=== PATIENT | male | born 1985 | race African-American/Black ===

== ENCOUNTER 2016-09-22 02:55 | Emergency (ER) | payer SELFPAY ==
[2016-09-22] MEDS ORDERED: PENICILLIN V POTASSIUM 500 MG TABLET PO ONE (04:36)
[2016-09-22] MEDS ORDERED: HYDROCODONE/ACETAMINOPHEN 5-325 MG 6 TAB/DSPK PO PRN (04:36)
--- NOTE | 2016-09-22 04:37 | ER Document Report ---
ED Oral Problem - General Chief Complaint: Toothache Stated Complaint: TOOTHACHE Time seen by provider: 04:36 Mode of Arrival: Ambulatory Information source: Patient TRAVEL OUTSIDE OF THE [place] IN LAST 30 DAYS: No - HPI Patient complains to provider of: Swelling of jaw, Toothache Onset: Other - 3 days Onset: Gradual Quality of pain: Achy Severity: Moderate Pain Level: 4 Swollen jaw/face: Mild Associated symptoms: None Similar symptoms previously: No Recently seen / treated by doctor/dentist: No Notes: Patient is a 31-year-old male who presents to the emergency room complaining of dental pain with swelling near tooth 19, that he first noticed 3 days ago, he denies any fever, no drainage, no injury, no similar symptoms previously - Related Data Allergies/Adverse Reactions: Sulfa (Sulfonamide Antibiotics) Allergy (Verified 09/22/16 03:27) Past Medical History - General Information source: Patient - Social History Smoking Status: Current Every Day Smoker Chew tobacco use (# tins/day): No Frequency of alcohol use: None Drug Abuse: None Family History: Reviewed & Not Pertinent Renal/ Medical History: Denies: Hx Peritoneal Dialysis Past Surgical History: Reports: Hx Orthopedic Surgery - Immunizations Hx Diphtheria, Pertussis, Tetanus Vaccination: Yes Review of Systems - Review of Systems Constitutional: No symptoms reported EENT: See HPI Cardiovascular: No symptoms reported Respiratory: No symptoms reported Gastrointestinal: No symptoms reported Genitourinary: No symptoms reported Male Genitourinary: No symptoms reported Musculoskeletal: No symptoms reported Skin: No symptoms reported Hematologic/Lymphatic: No symptoms reported Neurological/Psychological: No symptoms reported -: Yes All other systems reviewed and negative Physical Exam - Vital signs Vitals: Temp Pulse Resp BP Pulse Ox 98.8 F 60 16 142/77 H 100 09/22/16 03:11 09/22/16 03:11 09/22/16 03:11 09/22/16 03:11 09/22/16 03:11 Interpretation: Normal Notes: - General General appearance: Appears well, Alert In distress: None - HEENT Head: Normocephalic, Atraumatic Eyes: Normal Conjunctiva: Normal Extraocular movements intact: Yes Eyelashes: Normal Pupils: PERRL - Respiratory Respiratory status: No respiratory distress - Cardiovascular Rhythm: Regular - Abdominal Inspection: Normal - Back Back: Normal - Extremities General upper extremity: Normal inspection General lower extremity: Normal inspection - Neurological Neuro grossly intact: Yes Orientation: AAOx4 Yi Coma Scale Eye Opening: Spontaneous [place] Coma Scale Verbal: Oriented Yi Coma Scale Motor: Obeys Commands Yi Coma Scale Total: 15 - Psychological Associated symptoms: Normal affect, Normal mood - Skin Skin Temperature: Warm Skin Moisture: Dry Skin Color: Normal - HEENT Teeth diagram: 1 - Swelling with erythema and tenderness Course - Re-evaluation Re-evalutation: 09/22/16 05:30 Patient with swelling, erythema and tenderness to the gingiva surrounding tooth 19, no fluctuance, no drainage, no apparent dental injury, symptoms consistent with likely dental infection, patient was started on penicillin provided with pain medication as well as information for follow-up with dental clinics, advised to return if symptoms worsen, patient acknowledges understanding and agreement with this plan - Vital Signs Vital signs: Temp Pulse Resp BP Pulse Ox 98.1 F 62 14 133/80 H 100 09/22/16 04:56 09/22/16 04:56 09/22/16 04:56 09/22/16 04:56 09/22/16 04:56 Discharge - Discharge Clinical Impression: Dental infection Condition: Stable Disposition: HOME, SELF-CARE Instructions: [facility], Oral Narcotic Medication ([facility]), Penicillin V K ([facility]), Toothache ([facility]), Dental Infection or Abscess ([facility]) Additional Instructions: Follow-up with a dentist within the next 2-3 days. Return to the emergency room immediately if symptoms worsen or any additional concerns. Prescriptions: Oxycodone HCl/Acetaminophen [Percocet 5-325 mg Tablet] 1 - 2 tab PO ASDIR PRN # 15 tablet PRN Reason: Penicillin V Potassium [Penicillin Vk 500 mg Tablet] 500 mg PO TID #30 tablet
[2016-09-22 05:04] VITALS: BP 133/80
== END 2016-09-22 04:59 | disposition home or self-care (01) ==
LOC: ER 02:55
DX: K04.7 Periapical abscess without sinus (principal); K08.89 Other specified disorders of teeth and supporting structures; F17.200 Nicotine dependence, unspecified, uncomplicated; Z88.2 Allergy status to sulfonamides
CPT/HCPCS: 99282